=== PATIENT | female | born 2005 | race Caucasian/White ===

== ENCOUNTER 2025-04-24 11:48 | Emergency (ER) | payer OTHER, SELFPAY ==
[2025-04-24 11:49] VITALS: BP 121/73; PULSE 104; RESP 16; TEMP 36.6; O2SAT 100; BMI 20.4
--- NOTE | 2025-04-24 12:37 | CT_ITS ---
PROCEDURE: BRAIN/HEAD WITHOUT CONTRAST 04/24/2025 REASON FOR EXAM: HEADACHE TECHNIQUE: Procedure Code: CTBR Modality: CT Procedure: BRAIN/HEAD WITHOUT CONTRAST Coronal and Sagittal reconstruction series were provided. One or more dose reduction techniques were used (e.g., Automated exposure control, adjustment of the mA and/or kV according to patient size, use of iterative reconstruction technique. RADIATION DOSE SUMMARY: CTDlvol: 45 mGy DLP: 728 mGycm COMPARISON: None FINDINGS: Brain: There is no evidence of hemorrhage, acute ischemia or mass. No extra- axial fluid collection, midline shift or mass effect. CSF Spaces: Normal Sinuses/Mastoids: Clear Bones: No fracture CT/Brain/Head without Contrast IMPRESSION: No acute intracranial abnormality. Reading Location: [id number]
--- NOTE | 2025-04-24 12:42 | EX.ED.DYSGE1 ---
HPI History of Present Illness Chief Complaint: General Illness Narrative Narrative: Chief complaint and HPI: 19-year-old female with past medical history of concussion presents for evaluation of headache. Patient states 2 days ago she developed a mild headache. She has not taken anything for the pain. She states yesterday she had some nausea, vomiting, and light headedness. States today those symptoms have resolved. Continues to have a mild headache. She denies any trauma or injury. Denies any neurological deficits, numbness/tingling, weakness, photosensitivity, light sensitivity, neck pain. States she feels there may be a bump on the left side of her scalp. Denies any fever, chills, URI symptoms, shortness of breath, chest pain, abdominal pain, dysuria. Denies being sexually active. Review of systems: See HPI Medications: As listed on the chart Allergies: As listed on the chart PFSH: Per chart Vital signs: As listed on the chart. Reviewed. Physical exam: Gen: A&O x3, NAD Head: Normocephalic, atraumatic, no bump/hematoma felt Eyes: No sclera icterus, conjunctiva clear, PERRL, EOMI ENT: TMs clear BL, moist mucous membranes, posterior oropharynx unremarkable, uvula midline, tonsils not enlarged, no tonsillar exudates Neck: Trachea midline, Full ROM, No meningismus CV: RRR, no murmurs Resp: Lungs CTA BL, no w/r/c GI: Abd soft, non-distended, non-tender, no r/r/g Musc: Full ROM, no deformity Skin: Warm, dry, no rash Neuro: Alert, oriented, grossly intact, sensation intact Psych: Cooperative, appropriate mood and affect PFSH PFSH Medical History no medical history Home Medications ?Medication ?Instructions ?Recorded ?Last Taken ?Type No Known/Unobtainable [No Known 04/18/16 Unknown History Home Medications] Allergy/AdvReac Type Severity Reaction Status Date / Time No Known Allergies Allergy Verified 04/24/25 11:51 Family History no significant family his Surgical History no surgical history Social History Smoking Status: Never smoker EXAM Physical Exam Const Vital Signs: 04/24/25 11:49 04/24/25 12:16 04/24/25 13:49 Temperature 97.9 F Temperature Source Oral Pulse Rate 104 H 83 Respiratory Rate 16 Respiratory Effort Normal Non-Labored Respiratory Pattern Normal Blood Pressure 121/73 H 117/70 Blood Pressure Mean 89 85 Pulse Ox 100 100 Oxygen Delivery Method Room Air MDM MDM MDM Narrative Medical decision making narrative: 19-year-old female with past medical history of concussion presents for evaluation of headache. Patient states 2 days ago she developed a mild headache. She has not taken anything for the pain. She states yesterday she had some nausea, vomiting, and light headedness. States today those symptoms have resolved. Continues to have a mild headache. She denies any trauma or injury. Denies any neurological deficits, numbness/tingling, weakness, photosensitivity, light sensitivity, neck pain. States she feels there may be a bump on the left side of her scalp. Differential diagnosis includes but is not limited to tension headache, migraine, dehydration, electrolyte abnormality, viral illness. Suspect less likely intracranial abnormality. Exam and presentation is not consistent with meningitis. NS bolus, Reglan, Tylenol ordered. Laboratory workup ordered including CT head. CBC unremarkable. BMP unremarkable. Serum negative. UA negative for UTI. CT of the head shows no acute intracranial abnormality. At this point in time, no clear etiology for patient's headache. On reevaluation, headache has improved. Follow-up with primary care physician. Patient stable to discharge home. Return precautions explained. Impression: 1. Headache 2. Resolved nausea and vomiting Lab Data Labs: Laboratory Results - last 24 hr 04/24/25 04/24/25 12:49 13:39 WBC 8.5 RBC 4.70 Hgb 13.3 Hct 40.5 MCV 86.2 MCH 28.3 MCHC 32.8 RDW Std Deviation 38.6 RDW Coeff of Jasiel 12.2 Plt Count 234 MPV 10.8 Immature Gran % (Auto) 0.400 Neut % (Auto) 70.0 Lymph % (Auto) 18.3 L [place] % (Auto) 9.6 Eos % (Auto) 1.3 Baso % (Auto) 0.4 Absolute Neuts (auto) 5.9 Absolute Lymphs (auto) 1.55 Nucleated RBC % 0 Sodium 139 Potassium 4.0 Chloride 102 Carbon Dioxide 26.7 Anion Gap 10 BUN 14 Creatinine 0.71 Estim Creat Clear Calc 108.60 Est GFR (MDRD) Non-Af 125 BUN/Creatinine Ratio 18.9 Glucose 123 H Calcium 9.6 Serum , Qual NEGATIVE Urine Color Straw Urine Clarity Sl. Cloudy Urine pH 7.0 Ur Specific [place] 1.010 Urine Protein 15 H Urine Glucose (UA) Normal Urine Ketones Negative Urine Occult Blood Negative Urine Nitrite Negative Urine Bilirubin Negative Urine Urobilinogen Normal Ur Leukocyte Esterase Negative Urine RBC 0 SEEN Urine WBC 0 SEEN Ur Squamous Epith Cells 0-5 SEEN Urine Bacteria 1+ Urine Mucus 0 SEEN Radiography Diagnostic Testing: Clinical Impression(s) from Imaging Studies Brain CT 04/24/25 12:37 IMPRESSION: No acute intracranial abnormality. Reading Location: [id number] Discharge Plan Triage Chief Complaint: General Illness ED Provider: Yassine Mckeon Dx/Rx/DC Orders Prescriptions: No Action No Known Home Medications Primary Care Provider: Care Physician,No Primary Referrals: Care Physician,No Primary [Primary Care Provider, Medical] Print Language: Thai
[2025-04-24] MEDS: 0.9% Normal Saline (1000mL) 1,000 ML 1000 ML IV (12:45)
[2025-04-24 12:55] LABS: Hematocrit 40.5 % (37-47); Hemoglobin 13.3 g/dL (12.0-15.0); Immature Granulocytes Count 0.030 X10^3/uL (0.0-0.0); Mean Corp Hgb Conc 32.8 g/dL (32-36); Mean Corpuscular Volume 86.2 fL (81-99); Mean Platelet Vol. 10.8 fl (6.2-12.0); NRBC Flagged by Analyzer 0 % (0-5); Platelet Count 234 K/mm3 (150-450); RBC Distribution Width CV 12.2 % (11.6-14.6); RBC Distribution Width SD 38.6 fl (35.1-43.9); Red Blood Count 4.70 M/mm3 (4.2-5.4); White Blood Count 8.5 K/mm3 (4.4-11.0)
[2025-04-24 13:04] LABS: Internal QC Validated? YES +Cl - CLEAR BKGD; Pregnancy, Serum, hCG Quali. NEGATIVE Negative; Record Kit Lot#, Serum Preg. 0000980607
[2025-04-24 13:19] LABS: Anion Gap 10 (5-15); BUN 14 mg/dL (4-19); BUN/Creat Ratio 18.9 RATIO (10-20); Calcium,Total 9.6 mg/dL (7.6-11.0); Carbon Dioxide 26.7 mmol/L (21.0-32.0); Chloride 102 mmol/L (98-108); Estimated Creatinine Clearance 108.60 ml/min (50-250); Glucose 123 mg/dL (70-99); Potassium 4.0 mmol/L (3.3-5.1)
[2025-04-24 13:44] LABS: Mucous, Urine 0 SEEN /hpf (<or=2+); Red Blood Cells-Urine 0 SEEN /hpf (0-5)
[2025-04-24 13:48] LABS: Color, Urine Straw (Yellow); Glucose, Dipstick Normal (Normal); Ketone-Dipstick Negative (Negative); Leukocyte Esterase-Dipstick Negative /ul (Negative); Nitrite-Dipstick Negative (Negative); Occult Blood-Urine Negative /ul (Negative); Protein-Dipstick 15 mg/dl (Negative); Specific Gravity, Urine 1.010 (1.002-1.030); Urine Bilirubin Dipstick Negative (Negative)
[2025-04-24 13:49] VITALS: BP 117/70; PULSE 83; O2SAT 100
[2025-04-24 13:53] LABS: Squamous Epithelial Cells - UA 0-5 SEEN /hpf (5-10)
[2025-04-24 14:39] VITALS: BP 117/70; PULSE 83; RESP 16; TEMP 36.8; O2SAT 100
== END 2025-04-24 14:40 | disposition home or self-care (01) ==
PROVIDERS: Emergency Provider Surgery; Visit Provider Surgery
DX: R51.9 Headache, unspecified (principal)
CPT/HCPCS: 70450; 80048; 81001; 84703; 85025; 96361; 96374; 99283; A4216